=== PATIENT | male | born 1995 | race Caucasian/White ===

== ENCOUNTER 2018-10-21 10:18 | Emergency (ER) | payer OTHER ==
[2018-10-21 10:30] VITALS: BP 122/68
--- NOTE | 2018-10-21 11:06 | XRAY Report ---
Reason: pain after fall last night Procedure Date: 10/21/2018 Accession Number: [id number] / [id number] Procedure: XR - Elbow 3 View LT CPT Code: FULL RESULT: EXAM: LEFT ELBOW RADIOGRAPHY EXAM DATE: 10/21/2018 10:44 AM. CLINICAL HISTORY: Pain after fall last night. COMPARISON: None. TECHNIQUE: 3 views. FINDINGS: Bones: Normal. No fractures or bone lesions. Joints: Normal. No effusion. No subluxation. Soft Tissues: Normal. No soft tissue swelling. IMPRESSION: Normal elbow radiography. [facility]
--- NOTE | 2018-10-21 11:09 | ED Physician Documentation ---
PD HPI UPPER EXT INJURY - Stated complaint Stated Complaint: LEFT ARM PX - Chief complaint Chief Complaint: Ext Problem - History obtained from History obtained from: Patient - History of Present Illness Location: Left, Elbow Type of injury: Fall Where injury occurred: [place] Timing - onset: Enter time (1800), Last night Timing - duration: Days (1) Timing - details: Abrupt onset, Still present Improved by: Rest Worsened by: Moving, Palpating Associated symptoms: No: Weakness, Numbness, Tingling, Swelling Contributing factors: No: Anticoagulated Similar symptoms before: Diagnosis (radial head fracture) Recently seen: Not recently seen - Additonal information Additional information: 22-year-old male was skateboarding yesterday when he fell onto his outstretched left hand and he jammed his elbow. He has pain in the elbow over the antecubital with extension and flexion. He has had something similar to this previously on his right arm that required casting. Review of Systems Constitutional: denies: Fever Eyes: denies: Decreased vision Ears: denies: Ear pain Nose: denies: Congestion Throat: denies: Sore throat Cardiac: denies: Chest pain / pressure Respiratory: denies: Cough GI: denies: Vomiting PD PAST MEDICAL HISTORY - Allergies Allergies/Adverse Reactions: Allergies Allergy/AdvReac Type Severity Reaction Status Date / Time Penicillins Allergy Unknown Verified 10/21/18 10:26 PD ED PE NORMAL - Vitals Vital signs reviewed: Yes (normal ) - General General: Alert and oriented X 3, No acute distress, Well developed/nourished - HEENT HEENT: Atraumatic, PERRL, EOMI - Respiratory Respiratory: No respiratory distress - Derm Derm: Normal color, Warm and dry, No rash - Extremities Extremities: No deformity, No edema, Other (There is point tenderness over the radial head and there is normal ROM of the elbow with pain to far extention and flexion. There is no tenderness to the olecrenon or the distal humerus. distal n/v intact. ) - Neuro Neuro: Alert and oriented X 3, communication clerk 2-12 intact, No motor deficit, No sensory deficit, Normal speech Eye Opening: Spontaneous Motor: Obeys Commands Verbal: Oriented GCS Score: 15 - Psych Psych: Normal mood, Normal affect Results - Vitals Vitals: Vital Signs - 24 hr 10/21/18 10:24 Temperature 37.1 C Heart Rate 77 Respiratory 16 Rate Blood Pressure 122/68 O2 Saturation 99 Oxygen O2 Source Room air - Rads (name of study) elbow Radiology: Prelim report reviewed (Impression: Normal elbow radiography.), EMP read indepedently, See rad report PD MEDICAL DECISION MAKING - ED course Complexity details: reviewed results, considered differential, d/w patient ED course: 23-year-old male with a jammed elbow has no evidence of radial head fracture on x-ray examination of the elbow. He is placed into a sling and instructed it may take him 1-2 weeks to recover. Departure - Departure Disposition: 01 Home, Self Care Clinical Impression: Sprain of elbow, left Qualifiers: Encounter type: initial encounter Qualified Code(s): S53.402A - Unspecified sprain of left elbow, initial encounter Condition: Stable Instructions: ED Sprain Elbow Follow-Up: DENISE Wayne [Provider Group]
== END 2018-10-21 11:18 | disposition home or self-care (01) ==
LOC: ED 10:18
DX: S53.402A Unspecified sprain of left elbow, initial encounter (principal); V00.131A Fall from skateboard, initial encounter; Y93.51 Activity, roller skating (inline) and skateboarding; Y92.830 Public park as the place of occurrence of the external cause
CPT/HCPCS: 99283

== ENCOUNTER 2019-04-26 12:47 | Outpatient (CLI) | payer OTHER ==
[2019-04-26 13:24] VITALS: BP 120/79
--- NOTE | 2019-04-26 13:24 | SLEEP CARE CONSULTATION ---
Information from patient questionnaire entered by Callie June. I have reviewed and concur with the information entered by Callie June. This document represents the service I personally performed and the decisions made by me, Blas Patricia MD, [facility]. History of Present Illness Reason for Visit: New patient Chief Complaint: reports: Insomnia, Unrefreshed sleep, Excessive daytime sleepiness, Other (morning headache) Duration of Symptoms: 07/2018 Usual bedtime: 2260-3564 Time it takes to fall asleep: 60+ minutes Snores at night: Yes Observed to quit breathing while asleep: Yes Sleeps alone due to snoring: No Number of times waking at night: 1-2 Reasons for waking at night: reports: Other (unknown) Toss, Turn, or Twitch while sleeping: Yes Recalls having dreams: Yes Usually gets out of bed at: 0600 Feels refreshed in the morning: No Morning headache: Yes Sleepy or fatigued during the day: Yes Ever fallen asleep while driving: No Takes day naps: No Dreams during day naps: No Prior sleep studies: No Additional HPI information: I had the pleasure of seeing Mr. Magana today regarding the possibility of him having a sleep disorder. As you know, he is a 23 year old gentleman who complains of insomnia, unrefreshed sleep, morning headache, and excessive daytime sleepiness. He just started working nights. The patient tells me that he normally goes to bed around 9 - 10 pm, and it takes him approximately hours to fall asleep. He has been told that he snores loudly and irregularly at night. He has been observed to stop breathing in his sleep. He sleeps with a roommate. He can recall waking up on the average of 1 - 2 times during the night. Most of the time he wakes up because of no reasons. He has never awakened because of his own snoring, choking, or having to gasp for air. There is not a lot of tossing and turning in his sleep. No somniloquy (sleep talking) or somnambulism (sleep walking). Generally he can recall having dreams. In the morning he usually gets up out of the bed around 6 a.m. not feeling refreshed nor rested. He usually has a morning headache that lasts several hours. During the day he complains of feeling sleepy and fatigued. His score on [place] Sleep iness Scale is 8 out of 24. He has never fallen asleep while driving nor has had any accident due to sleepiness. He usually does not take naps during the day. Upon falling asleep during the day he denies having vivid dreams. He has never had sleep paralysis, experienced cataplexy or symptoms of restless leg syndrome. He reports having impaired concentration during the day. Subjective Initial [place] Sleepiness Scale score: 8 Social History The patient's occupation is . Patient is Single and lives in [place]. Have you smoked in the past 12 months: Yes Cigarettes per day (20/pack): 7 Years of smokin Smoking Pack Years: 1.2 Alcohol use: Yes Alcohol amount and frequency: 1-3 drinks/month Caffeine use: Yes Caffeine amount and frequency: 1 coffee/morning Family History Family history of sleep disordered breathing: Yes Family Hx Sleep Apnea: Father: Sleep apnea - Treated (uncles), Other: Sleep apnea - Treated Allergies and Home Medications Drug allergies reviewed: Yes Home medication list reviewed: Yes Review of Systems Cardiovascular: denies: high blood pressure, palpitations, chest pain, irregular heart rate or pulse, leg or foot swelling, have to sleep sitting up, other Respiratory: denies: shortness of breath, wheeze, sputum production, chronic cough, other Gastrointestinal: denies: heartburn, difficulty swallowing, nausea, vomitting, diarrhea, abdominal pain, other Urinary: denies: incontinence, frequency, urgency, impotence, other Neurological: reports: headaches Psychiatric: denies: Attention Deficit Hyperactivity, anxiety, depression, mood disorder, claustrophobia, other Ear/Nose/Throat: reports: dry mouth/throat Endocrine: denies: thyroid disease, history of goiter, sluggishness, too hot or cold, excessive thirst, increased appetite, increased urination, unexplained weakness, other Musculoskeletal: reports: joint pain, back pain Immunologic: denies: sneezing, rash, itching, allergies to food or environment, other Physical Exam Vital signs obtained and entered by: Dr. Patricia Blood Pressure: 120/79 Cuff size: regular Heart Rate: 66 O2 Saturation: 99 Height: 5 ft 7 in Weight: 163 lb Body Mass Index: 25.5 BMI Classification: Overweight Neck circumference: 14.5 Mood/affect: normal HEENT: No craniofacial malformation Nostrils: patent to airflow Turbinates: normal Septum: midline Mouth and throat: normal Soft palate: normal Hard palate: normal Uvula: normal Uvula visualization: 100% Mallampati Class I Tongue: normal in size Tonsils: small Chin and jaw: Retrognathia Neck: normal w/o lymphadenopathy or thyromegaly Heart: regular rate and rhythm Lungs: clear bilaterally Abdomen: soft, non-tender Extremities: no edema or clubbing Neurologic: intact, no focal deficits Impression and Plan IMPRESSION: 1. Suspected Obstructive Sleep Apnea-Hypopnea Syndrome, as suggested by history of snoring, observed cessation of breath while asleep, unrefreshed sleep, cognitive impairment, and daytime hypersomnolence. Pathophysiology of sleep- disordered breathing was discussed. I recommend proceeding to polysomnography to confirm the diagnosis and to assess severity. I informed the patient of what the sleep studies involve and after some discussion, he agreed to proceed. 2. 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 Because on weekends he goes to bed at 2 am and gets up at 10 am, it will always be difficult to try to go to bed at 10 pm on week nights. 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 Therefore, while working the evening shift, he should not go to bed until 3 am. Plan: 1. Schedule polysomnography and return in 1 to 2 weeks after the study to discuss result and initiate therapy. 2. Avoid long distance driving or when feeling sleepy. 3. Avoid alcohol, sedative and muscle relaxant around bedtime. 4. Maintain a regular wake up time and spend no more than 8 hours in bed at night. Avoid naps. I spent 100% of the 15 minute visit [id number] with the patient with greater than 50% of this was spent time counseling the patient and coordination of care.
== END 2019-04-26 12:48 | disposition home or self-care (01) ==
LOC: SC 12:47
PROVIDERS: ATTEND Internal Medicine Pulmonary Disease
DX: R06.83 Snoring (principal); R06.81 Apnea, not elsewhere classified; G47.8 Other sleep disorders; R41.89 Other symptoms and signs involving cognitive functions and awareness; G47.10 Hypersomnia, unspecified; G47.21 Circadian rhythm sleep disorder, delayed sleep phase type
CPT/HCPCS: 99203; 99212

== ENCOUNTER 2019-05-26 19:07 | Outpatient (CLI) | payer OTHER | END 2019-05-26 19:08 | disposition home or self-care (01) | LOC: SC 19:07 | PROVIDERS: ATTEND Internal Medicine Pulmonary Disease | DX: R06.83 Snoring (principal); R00.1 Bradycardia, unspecified; G47.10 Hypersomnia, unspecified; R53.83 Other fatigue | CPT/HCPCS: 95810 ==

== ENCOUNTER 2019-06-16 16:01 | Outpatient (CLI) | payer OTHER ==
--- NOTE | 2019-06-16 17:17 | SLEEP CARE CONSULTATION ---
Information from patient questionnaire entered by Shanae Rocha. I have reviewed and concur with the information entered by Shanae Rocha. This document represents the service I personally performed and the decisions made by me, Sonal Anna RN, MSN, [employer]. History of Present Illness Initial [place] Sleepiness Scale score: 8 Current [place] Sleepiness Scale score: 5 Additional HPI information: REBECCA ESPINOSA returns for follow up of the recently performed polysomnography and informed of findings. I explained the pathophysiology behind obstructive sleep apnea. Patient does not have sleep apnea and was advised how weight gain could increase the risk of developing sleep apnea in the future. Patient has moderate snoring. Snoring can be reduced by weight loss but patient does not need to lose weight. Snoring can also be treated with an oral ho liance from a dentist. Patient is not interested at this time. In addition, an ENT evaluation can be do to see if other treatment is indicated especially since patient reports breathing difficulty through his nose. Snoring and difficulty breathing through the nose can disrupt sleep and contribute to daytime sleepiness. ] Patient counseled not drink alcohol less than 4 hours before bedtime as it can increase snoring and apnea. Patient does not drink alcohol. Patient was cautioned about risks of drowsy driving until sleepiness symptoms resolve. Patient denies drowsy driving. [facility] patient education on snoring and sleep apnea given and reviewed. Review of sleep history reflects that patient wake time 10 am every day and bedtime is about 2 am. 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 He is sleepy when he goes to bed. It averages about 30-60 minutes to fall asleep. Sleep Study - Polysomnography Polysomnography findings: The quality of the study is good. The patient had slightly reduced sleep efficiency due to a few awakenings in the first half of the night.. The sleep architecture was otherwise normal. Respiratory monitoring showed no significant sleep disordered breathing (AHI = 0.5) or hypoxia (anay oxygen saturation of 92%). The patient slept mostly supine (supine AHI = 0.7; non-supine = 0.00). Snore was moderate in intensity. There was no significant periodic leg movement of sleep. Cardiac rhythm was normal sinus rhythm occasional sinus bradycardia (minimal heart rate of 38 beats per minute). No abnormal behavior (parasomnia) observed during the night. Allergies and Home Medications Known drug allergies: Yes (penicillin ) Home medication list reviewed: No (no medications ) Review of Systems Review of systems same as previous: Yes (torn ligament right ankle ) Physical Exam Blood Pressure: 104/68 Cuff size: regular Heart Rate: 79 O2 Saturation: 98 Height: 5 ft 10.5 in Weight: 172 lb Body Mass Index: 24.3 BMI Classification: Healthy weight Impression and Plan 1. Snoring but no significant sleep disordered breathing. Patient advised that often weight loss will reduce snoring but he is at normal weight so advised not to gain weight as it will apnea risk. An oral appliance can also be used for snoring and patient declined. An ENT consult can also be helpful to determine if any other treatment is an option. This was recommended to patient especially since he has difficulty breathing through his nose which can disrupt sleep and contribute to sleepiness symptoms. He is to follow up with his PCP for a referral and agreed with plan. 2. Bradycardia, Bradycardia could be a cause of fatigue. A Holter monitor is recommended. Patient advised to follow up for further evaluation and agreed with plan. 3. Insomnia, reported as difficulty initiating sleep, that could be related to going to bed too early for his sleep need. Thus since it is taking him 30- 60 minutes to fall asleep he is advised to go to bed about 30 minutes later and only if sleepy. I explained that most people required 7-9 hours of sleep. 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 He was also counseled about no bright light at night but that it is beneficial in the morning. * Follow up with PCP for ENT referral and further evaluation of bradycardia * Implement methods to reduce insomnia. * Avoid alcohol consumption near bedtime * The patient is cautioned about driving until sleepiness is completely resolved. * Return as needed. I spent 100% of this 35 minute visit face to face with the patient with greater than 50% of this was spent time counseling the patient and coordination of care.
[2019-06-16 17:18] VITALS: BP 104/68
== END 2019-06-16 16:02 | disposition home or self-care (01) ==
LOC: SC 16:01
PROVIDERS: ATTEND Nurse Practitioner Family
DX: R06.83 Snoring (principal); R00.1 Bradycardia, unspecified; G47.00 Insomnia, unspecified
CPT/HCPCS: 99212; 99214